=== PATIENT | female | born 1995 | race Caucasian/White ===

== ENCOUNTER 2024-05-03 10:59 | Outpatient (CLI) | payer OTHER, SELFPAY ==
[2024-05-05 02:47] LABS: HPV Source Endocervical; HPV, High Risk by TMA Not Detected
== END 2024-05-03 11:00 | disposition home or self-care (01) ==
PROVIDERS: PCP Family Medicine; Visit Provider Family Medicine
DX: Z12.4 Encounter for screening for malignant neoplasm of cervix (principal); Z11.51 Encounter for screening for human papillomavirus (HPV)
CPT/HCPCS: 87624; 87625; 88141; 88142

== ENCOUNTER 2024-10-29 18:33 | Outpatient (CLI) | payer OTHER, SELFPAY ==
--- NOTE | 2024-10-29 19:00 | MR_ITS ---
EXAM: MRI of the RIGHT SHOULDER, without contrast CLINICAL INFORMATION: Female, 29 years old, with right shoulder pain. INDICATION: Evaluate for rotator cuff tear. PRIOR SURGERY: None reported. PLAIN FILMS: Shoulder radiographs dated 09/14/2024. COMPARISONS: No prior MRIs available. TECHNICAL INFORMATION: Using a 1.5T MR scanner and a localizing surface coil: coronal obliques: PD, T2, STIR sagittal obliques: PD, T2 axials: PD, T2 SEDATION: None CONTRAST: None FINDINGS: Bones: Proximal humerus: No fracture or marrow edema/pathology. No humeral Hill-Sachs or reverse Hill-Sachs lesion/impaction or contusion. Glenoid: No fracture or marrow edema/pathology. No osseous Bankart lesion. Rotator cuff and muscles/tendons: Supraspinatus: Mild supraspinatus tendinopathy without tendon tear or muscle atrophy. Infraspinatus: No tendinopathy, tear or atrophy. Teres minor: No tendinopathy, tear or atrophy. Subscapularis: Mild tendinopathy of the superior distal subscapularis without tendon tear or muscle atrophy. Deltoid: No strain or atrophy. Coracoacromial arch: Acromion morphology: The acromion has type II morphology. No discrete subacromial osseous spur or os acromiale. Acromiohumeral space: The acromiohumeral space is within normal limits. Coracohumeral space: The coracohumeral space is within normal limits. Acromioclavicular joint: Joint: No acute injury, arthropathy, or inferior hypertrophy. Ligaments: Coracoclavicular ligaments are intact. Bursae: Subacromial-subdeltoid: No convincing subacromial bursal thickening/bursitis. Subcoracoid: No convincing subcoracoid bursal thickening/bursitis. Biceps tendon: The long head of the biceps tendon is present within the bicipital groove. The intra-articular and extra-articular segments are intact without tendinosis, tenosynovitis, or displacement. Glenohumeral joint: Effusion/cyst: No significant glenohumeral joint effusion. Articular cartilage: Humeral head: No osteochondral abnormalities. Glenoid: No osteochondral abnormalities. Loose bodies: No discrete intra-articular body within the joint. Labrum:?No discrete labral tear or paralabral cyst identified on this non- arthrographic study. Inferior glenohumeral ligament/axillary pouch:?Mild-moderate thickening of inferior capsuloligamentous structures (coronal PD series 6 images 16-21). Additionally, there is soft tissue thickening throughout the rotator interval (sagittal PD series 8 images 10-15). IMPRESSION: 1. Findings in keeping with any clinical symptoms of adhesive capsulitis. 2. Mild supraspinatus & subscapularis tendinopathy. No rotator cuff tendon tear. 3. No tendinopathy, displacement, or tear of the biceps long head tendon. 4. No labral tear or paralabral cyst. 5. No AC joint arthropathy or subacromial subdeltoid bursitis. 6. No full-thickness chondral defect or evidence of glenohumeral joint osteoarthritis. BC Electronically signed on 10/30/2024 10:19:00 AM by Abiel Perez M.D.
== END 2024-10-29 18:34 | disposition home or self-care (01) ==
LOC: MRI 18:33
PROVIDERS: PCP Family Medicine; Visit Provider Orthopaedic Surgery Sports Medicine
DX: M25.511 Pain in right shoulder (principal); M75.01 Adhesive capsulitis of right shoulder; M75.101 Unspecified rotator cuff tear or rupture of right shoulder, not specified as traumatic
CPT/HCPCS: 73221